=== PATIENT | male | born 1950 | race Caucasian/White ===

== ENCOUNTER 2020-08-14 15:52 | Emergency (ER) | payer OTHER, MEDICARE ==
[2020-08-14] MEDS ORDERED: ONDANSETRON 4 MG/2 ML VIAL IVPUSH ONE (16:04)
[2020-08-14] MEDS ORDERED: LACTATED RINGERS SOLUTION 1000 ML INFUS.BAG IV ONE ×2 (16:04→17:13)
[2020-08-14] MEDS ORDERED: ACETAMINOPHEN 1000 MG/100 ML VIAL (NON FORMULARY) IVPB ONE (16:04)
[2020-08-14 16:12] VITALS: BMI 25.8
[2020-08-14] MEDS ORDERED: ACETAMINOPHEN INJECTION 100 ML IVPB ONE (16:20)
[2020-08-14] MEDS ORDERED: ONDANSETRON 4 MG/2 ML VIAL ONE (16:20)
[2020-08-14] MEDS ORDERED: morphine CARPU-JECT 4 MG/1 ML DISP.SYRIN IVPUSH ONE (16:21)
[2020-08-14] MEDS ORDERED: morphine SULFATE 4 MG/ML VIAL ONE ×2 (16:41→17:14)
[2020-08-14 17:02] LABS: HEMOGLOBIN 14.8 GM/dl (11.7-16.9)
[2020-08-14 17:06] LABS: BASO % 0.7 % (0-2.0); EOS % 0.2 % (0-4.5)
[2020-08-14 17:12] LABS: HEMATOCRIT 43.4 % (35.4-49); LYMPH % 6.1 % (8-40); MCH 31.6 pg (25.7-33.7); MCHC 34.2 g/dl (32.0-35.9); MEAN CELL VOLUME 92.5 fl (80-96); MEAN PLT VOLUME 9.2 fl (7.5-11.1); MONO % 3.7 % (3.8-10.2); NEUT % 89.3 % (42.8-82.8); PLATELET COUNT 238 K/MM3 (134-434); RBC 4.69 M/mm3 (4.00-5.60); RDW 12.7 % (11.9-15.9); WHITE BLOOD COUNT 11.6 K/mm3 (4.0-10.8)
[2020-08-14] MEDS ORDERED: morphine CARPU-JECT 2 MG/1 ML DISP.SYRIN IVPUSH ONE (17:13)
[2020-08-14 17:22] LABS: ALBUMIN 4.4 g/dl (3.4-5.0); ALK PHOS 65 U/L (45-117); ANION GAP 16 MMOL/L (8-16); BILIRUBIN,TOTAL 1.7 mg/dl (0.2-1); CALCIUM 9.9 mg/dl (8.5-10); CHLORIDE 99 mmol/L (98-107); CO2 18 mmol/L (21-32); CREATININE 1.3 mg/dl (0.55-1.3); GLUCOSE,RANDOM 296 mg/dl (74-106); SGOT/AST 29 U/L (15-37); SGPT/ALT 22 U/L (13-61); SODIUM 133 mmol/L (136-145); TOT PROT 7.6 g/dl (6.4-8.2)
[2020-08-14 17:23] LABS: POTASSIUM 4.5 mmol/L (3.5-5.1)
[2020-08-14 18:36] LABS: LIPASE 291 U/L (73-393)
[2020-08-14 19:43] VITALS: BP 151/78; PULSE 55; TEMP 98.2
[2020-08-14 20:55] LABS: VENOUS BASE EXCESS -0.9 mmol/L (-2-2); VENOUS O2 SATURATION 61.1 % (70-80); VENOUS PCO2 45.7 mmHg (38-52); VENOUS PH 7.357 (7.310-7.410)
[2020-08-14 21:46] LABS: EPITHELIAL CELLS RARE /hpf
== END 2020-08-14 22:42 | disposition home or self-care (01) ==
LOC: FER 15:52
PROC: 3E0333Z Introduction of Anti-inflammatory into Peripheral Vein, Percutaneous Approach (ICD-10-PCS; principal; 2020-08-14)
PROC: 3E033NZ Introduction of Analgesics, Hypnotics, Sedatives into Peripheral Vein, Percutaneous Approach (ICD-10-PCS; 2020-08-14)
PROC: 3E033NZ Introduction of Analgesics, Hypnotics, Sedatives into Peripheral Vein, Percutaneous Approach (ICD-10-PCS; 2020-08-14)
PROC: 3E033GC Introduction of Other Therapeutic Substance into Peripheral Vein, Percutaneous Approach (ICD-10-PCS; 2020-08-14)
DX: R11.2 Nausea with vomiting, unspecified (principal)
CPT/HCPCS: 36415; 71045-TC-FY; 74177-TC; 80053; 81003; 81015; 82010; 82803; 83605; 83690; 84443; 84484; 85025; 93005; 99285-25; C9803; J0131; Q9967; U0003